=== PATIENT | female | born 1975 | race Caucasian/White ===

== ENCOUNTER → 2023-11-28 06:31 | Day surgery (SDC) | payer OTHER, SELFPAY | LOC: GI 06:31 | PROVIDERS: ATTENDING PHYSICIAN Specialist | DX: Z12.11 Encounter for screening for malignant neoplasm of colon (principal); K31.89 Other diseases of stomach and duodenum; K31.7 Polyp of stomach and duodenum; R10.12 Left upper quadrant pain; Z87.19 Personal history of other diseases of the digestive system | CPT/HCPCS: 43239; G0121; 88305; 88342 ==

== ENCOUNTER → 2023-12-27 06:35 | Outpatient (REF) | payer OTHER, SELFPAY | LOC: MRI 3T 06:35 | PROVIDERS: ATTENDING PHYSICIAN Orthopaedic Surgery; FAMILY PHYSICIAN Internal Medicine | DX: M54.12 Radiculopathy, cervical region (principal); M25.512 Pain in left shoulder | CPT/HCPCS: 72141; 73221 ==

== ENCOUNTER → 2024-03-23 07:15 | Outpatient (REF) | payer SELFPAY | LOC: RAD 07:15 | PROVIDERS: ATTENDING PHYSICIAN Nurse Practitioner Family | DX: E66.01 Morbid (severe) obesity due to excess calories (principal); E78.2 Mixed hyperlipidemia | CPT/HCPCS: 75571 ==